=== PATIENT | male | born 1995 | race Two or more races ===

== ENCOUNTER 2025-04-17 11:21 | Inpatient (IN) | payer SELFPAY ==
[~2025-04-17] VITALS: Ht 170.2 cm; Wt 93.3 kg
--- NOTE | 2025-04-17 11:39 | ED.PDOC ---
GI ASSESSMENT HPI Comments 29-year-old male presents with a chief complaint of abdominal pain x onset last night. Patient reports that his pain is localized to his umbilical region, nonradiating, describes as cramping, and rates his pain a 6/10. Patient reports that he is also experiencing blood in his stool. Patient relays that the blood is bright in color. Patient endorses nausea but no vomiting. PMHx: None PSHx: Left Foot Allergies: NKDA HPI: Poor Historian. REVIEW OF SYSTEMS: CONSTITUTIONAL: Denies acute: fever, diaphoresis, chills, generalized weakness. HEAD: Denies acute: headache, photophobia Eyes: Denies acute: Double vision, vision loss, eye pain, eye discharge. EARS: Denies acute: tinnitus, hearing loss, ear discharge, ear pain, THROAT: Denies acute: sore throat, swelling, difficulty swallowing , pain with swallowin g, change in voice. NECK: Denies acute: neck pain, neck swelling, stiff neck. HEART: Denies acute : chest pain, palpitations, LUNGS: Denies acute: SOB, wheezing, cough, hemoptysis ABDOMEN: Denies acute: Vomiting, diarrhea, melena , hematemesis, SKIN: Denies acute: rash, redness, lesions, itchiness. EXTREMITIES: Denies acute: calf pain, numbness, tingling, weakness, denies pain in extremity. Denies acute: Low back pain. Neuro: Denies acute: focal neurological deficit, motor or sensory focal neurological deficit, tremors, seizure like activity, confusion, dizziness, change in mental status, loss of bowel or bladder function, cauda equina like symptoms. : Denies acute: dysuria, hematuria, flank pain, increase in urinary frequency. PSYCH: Denies acute: hallucination, suicidal ideation, homicidal ideation. PHYSICAL EXAM: General: ----figo-[id number]---acute distress, awake and alert. Head: normocephalic, atraumatic. Neck: supple, trachea is midline, no swelling. Throat: Normal phonation. Eyes:, no erythema, no purulent discharge, no proptosis, no icterus. Heart: regular rate, regular rhythm, no significant murmur appreciated. Lungs: no apparent respiratory distress, Able to speak in full sentences. No wheezing, no rhonchi, no crackles. No stridors Clear to auscultation bilaterally. Abdomen: Periumbilical tender to palpation, non distended, soft, no guarding, no rebound, + bowel sounds. Neuro: Awake, Alert, oriented to name, self, situation, follows commands GCS=15. Speech is normal. Skin: no petechia, no purpura, no cyanosis, non-pale, not jaundice. Lower extremities: --no - Pitting edema no deformity, no focal swelling, no calf TTP. Makes eye contact. moves all four extremities. Face: no apparent facial droop. Ambulating in the ED independently. ED COURSE: Time Seen by MD: 11:31 Reviewed Notes: Nurses Notes, Allergies Allergies: Coded Allergies: NO KNOWN ALLERGIES (Unverified , 04/17/25) Home Meds Active Scripts Acetaminophen W/ Codeine (Tylenol W/Cod #3) 1 Tab Tb, 1 TAB PO TIDPRN PRN for 7 Days, #21 TAB Prov:BALA DE LA GARZA MD 04/18/25 Cephalexin Monohydrate (Cephalexin) 500 Mg Tab, 1 TAB PO TID for 7 Days, #21 TAB Prov:BALA DE LA GARZA MD 04/18/25 Information Source: Patient Past Medical History PAST MEDICAL HISTORY: Denies Surgical History: Denies all surgeries Family History Family History: Reviewed,noncontributory to illness Social History Smoker: Non-Smoker Alcohol: Denies ETOH Use Drugs: Denies Drug Use Lives In: Home Was a procedure done? Was a procedure done?: No GI differential Dx Differential Diagnosis: Other (DDX include but not limited to diverticulitis, colitis, gastroenteritis, acute abdomen, SBO, enteritis, constipation, volvulus, appendicitis, Gallbladder disease, choledocolithiasis, ascending cholangitis, pancreatitis, intraAbdominal mass/neoplasm, hepatitis, UTI, pylonephritis, kidney stone, aneurysm, dissection, Inflammatory bowel disease, gastroparesis, ischemic bowel.) X-Ray, Labs, Meds, VS Vital Signs Date Time Temp Pulse Resp B/P (MAP) Pulse Ox O2 Delivery O2 Flow Rate FiO2 04/17/25 17:14 77 16 112/67 (82) 94 04/17/25 16:59 85 20 116/70 (85) 99 04/17/25 16:44 91 20 144/75 (98) 100 04/17/25 16:39 88 16 127/76 (93) 100 04/17/25 16:34 98 17 134/74 (94) 100 04/17/25 16:29 Mask 10.0 100 04/17/25 16:29 100 Mask 10.0 04/17/25 16:29 98.5 97 12 124/67 (86) 100 98.5 04/17/25 14:17 120/78 04/17/25 14:08 85 22 98 Room Air* 0 21 04/17/25 13:10 97.4 88 24 114/72 (86) 99 97.4 04/17/25 13:10 88 24 99 Room Air 04/17/25 11:30 97.4 87 20 119/77 (91) 100 97.4 Lab Test 04/17/25 12:00 04/17/25 11:35 Range/Units White Blood Count 13.4 H 4.4-10.8 10^3/uL Red Blood Count 5.21 4.5-5.90 10^6/uL Hemoglobin 15.7 13.5-17.5 g/dL Hematocrit 45.5 41.0-53.0 % Mean Corpuscular Volume 87.2 80.0-100.0 fL Mean Corpuscular Hemoglobin 30.1 28.0-32.0 pg Mean Corpuscular Hemoglobin Concent 34.5 32.0-36.0 g/dL Red Cell Distribution Width 14.0 11.8-14.3 % Platelet Count 282 140-450 10^3/uL Mean Platelet Volume 8.3 6.9-10.8 fL Neutrophils (%) (Auto) 83.2 H 37.0-80.0 % Lymphocytes (%) (Auto) 11.5 10.0-50.0 % Monocytes (%) (Auto) 4.5 0.0-12.0 % Eosinophils (%) (Auto) 0.1 0.0-7.0 % Basophils (%) (Auto) 0.7 0.0-2.0 % Neutrophils # (Auto) 11.1 H 1.6-8.6 10 ^3/uL Lymphocytes # (Auto) 1.5 0.4-5.4 10 ^3/uL Monocytes # (Auto) 0.6 0-1.3 10 ^3/uL Eosinophils # (Auto) 0 0-0.8 10 ^3/uL Basophils # (Auto) 0.1 0-0.2 10 ^3/uL Nucleated Red Blood Cells 0.0 % Sodium Level 138 136-145 mmol/L Potassium Level 3.9 3.5-5.1 mmol/L Chloride Level 104 98-107 mmol/L Carbon Dioxide Level 24 20-31 mmol/L Anion Gap 10 5-15 Blood Urea Nitrogen 10 9-23 mg/dL Creatinine 0.81 0.700-1.30 mg/dL Glomerular Filtration Rate Calc 124 >90 mL/min BUN/Creatinine Ratio 12.3 10.0-20.0 Serum Glucose 106 74-106 mg/dL Lactic Acid Level 1.7 0.4-2.0 mmol/L Calcium Level 10.7 H 8.7-10.4 mg/dL Total Bilirubin 2.1 H 0.2-1.0 mg/dL Aspartate Amino Transferase (AST) 14 13-40 U/L Alanine Aminotransferase (ALT) 28 7-40 U/L Alkaline Phosphatase 90 46-116 U/L Total Protein 8.2 5.7-8.2 g/dL Albumin 5.2 H 3.2-4.8 g/dL Lipase 33 12-53 U/L Urine Color Yellow Yellow Urine Clarity Clear Clear Urine pH 7.0 5.0-9.0 Urine Specific [place] 1.041 H 1.001-1.035 Urine Protein 1+ H Negative Urine Ketones 4+ H Negative Urine Blood Negative Negative /uL Urine Nitrite Negative Negative Urine Bilirubin Negative Negative Urine Urobilinogen 4 H Negative mg/dL Urine Leukocyte Esterase Trace Negative /uL Urine RBC 1 0 - 3 /hpf Urine Microscopic WBC 1 0-3 /HPF Urine Squamous Epithelial Cells Few <5 /hpf Urine Bacteria None seen None Seen /hpf Urine Mucus Few None Seen Urine Glucose Trace Normal mg/dL Urine Opiates Screen Neg NEGATIVE Urine Fentanyl Screen Neg NEGATIVE Urine Barbiturates Screen Neg NEGATIVE Urine Phencyclidine Screen Neg NEGATIVE Urine Amphetamines Screen Pos NEGATIVE Urine Benzodiazepines Screen Neg NEGATIVE Urine Cocaine Screen Neg NEGATIVE Urine Cannabinoids Screen Neg NEGATIVE Current Medications Medications (Trade) Dose Ordered Sig/Arslan Route Start Time Stop Time Status Last Admin Hydromorphone HCl (Dilaudid Injection) 0.5 mg Q10M PRN IV 04/17/25 16:45 04/17/25 17:26 DC 04/17/25 14:50 PATIENT: JEFFREY MEZACCT: [id number]: [id number] : 1995 LOC: ER ROOM / BED: / AGE / SEX: 29 / M ADM STATUS: REG ER SERVICE 1134 ORDERING PHYSICIAN: SHIELA GUAJARDO DO PROCEDURE(s): ABPL - CT AB PEL WO CON-NO ORAL OR IV REASON: umbilical pain ORDER NUMBER(s): [id number], ACCESSION NUMBER(s): [id number] Exam: CT CT AB PEL WO CON-NO ORAL OR IV History: umbilical pain Comparison Study: None Technique: Multidetector spiral CT of the abdomen and pelvis was performed from lung bases to pubic symphysis. Imaging was performed without IV contrast. Axial, coronal and sagittal multiplanar reformats were obtained from the axial data set by the technologist. Radiation dose : Abdomen/Pelvis: CTDIvol 8 mGy, DLP 434 mGy*cm. Findings: Evaluation of solid organs is limited due to lack of intravenous contrast use. Lung Bases: No acute or significant lung base finding. Normal heart size. No pleural or pericardial effusion. Liver: The liver is normal in size. No focal lesions. Gallbladder and biliary Tree: Unremarkable Spleen: Unremarkable Pancreas: The pancreas is grossly normal in appearance. Adrenal Glands: Unremarkable Kidneys: Kidneys are grossly normal without calculi or hydronephrosis. Bladder: Grossly unremarkable for degree of distention. Bowel: The stomach is grossly normal in appearance. Small bowel and colon are normal in caliber and distribution. Appendix is dilated with mild periappend iceal stranding. Appendicolith at the base of the appendix. No loculated abscess. Ascites: Absent Lymphadenopathy: Subcentimeter retroperitoneal and mesenteric lymph nodes noted. Abdominal wall and Mesentery: Mild right lower quadrant stranding as above. Vasculature: The visualized abdominal aorta is normal in size and caliber. Evaluation of abdominal and pelvic vessels is limited due to lack of intravenous contrast. Pelvic Organs: Unremarkable Musculoskeletal: No aggressive focal bony lesions, acute fractures or dislocation. IMPRESSION: 1. Acute appendicitis. No evidence of rupture at this time. No loculated abscess. Surgical evaluation is recommended. Critical Result: Acute appendicitis Findings discussed with SHIELA GUAJARDO at 04/17/2025 01:07 PM, and acknowledged receipt and understanding of the findings. Radiation optimization: All CT scans at this facility use at least one of these dose optimization techniques: Automated exposure control mA and/or kV adjustment per patient size (includes targeted exams where dose is matched to clinical indication) or iterative reconstruction. HS:Y ATED BY: RIKI GILL MD DICTATED DATE/TIME: 04/17/251315 SIGNED BY: RIKI GILL MD SIGNED DATE/TIME: 04/17/251315 Time of 1ST Reevaluation: 12:01 Reevaluation 1ST: Unchanged Patient Education/Counseling: Diagnosis, Treatment Family Education/Counseling: No Family Present Comments Patient presented with the above HPI.---abdominal pain---workup was initiated. patient was found with the above mentioned diagnosis. the following medications were ordered: please refer to order lists of meds and tests obtained by myself Dr. Guajardo. Patient ED course and VS have been stabilized. Patient has been reassessed in the ED and remained in a stable condition. Pertinent incidental findings were discussed with the patient and/or family. Patient/family voices understanding and is agreeable with plan. Patient has been observed in the ED adequate length of time to insure improvement/stability. Escalation of care considered: Consideration of escalation to observation or admission Patient was found with acute appendicitis. A consult for General surgery was placed. Antibiotics initiated and fluids and pain medications. Patient was ADMITTED to the medicine team for further evaluation and treatment of their presentation. All the reports of any imaging studies that were ordered by myself were reviewed by myself. Departure 1 Departure Time of Disposition: 13:15 Impression: Primary Impression: Acute appendicitis Disposition: ADMITTED INPATIENT Admit to: Tele Condition: Guarded e-Prescriptions Acetaminophen W/ Codeine (Tylenol W/Cod #3) 1 Tab Tb 1 TAB PO TIDPRN PRN for 7 Days, #21 TAB Prov: BALA DE LA GARZA MD 04/18/25 Cephalexin Monohydrate (Cephalexin) 500 Mg Tab 1 TAB PO TID for 7 Days, #21 TAB Prov: BALA DE LA GARZA MD 04/18/25 Discharged With: Self Critical Care Note Critical Care Time?: Yes (35 min-critical care time only) I personally scribed for SHIELA GUAJARDO DO ([email or web address]) on 04/17/25 at 11:39. Electronically submitted by Ham Lewis ([email or web address]). I personally scribed for SHIELA GUAJARDO DO ([email or web address]) on 04/17/25 at 13:53. Electronically submitted by Ham Lewis ([email or web address]). SHIELA GUAJARDO DO Apr 17, 2025 11:39
[2025-04-17 12:17] LABS: Basophils # (auto) 0.1 10 ^3/uL (0-0.2); Basophils % (auto) 0.7 % (0.0-2.0); Eosinophils # (auto) 0 10 ^3/uL (0-0.8); Eosinophils % (auto) 0.1 % (0.0-7.0); Hematocrit 45.5 % (41.0-53.0); Hemoglobin 15.7 g/dL (13.5-17.5); Lymphocytes # (auto) 1.5 10 ^3/uL (0.4-5.4); Lymphocytes % (auto) 11.5 % (10.0-50.0); Mean Corpuscular Hemoglobin 30.1 pg (28.0-32.0); Mean Corpuscular Hgb Conc. 34.5 g/dL (32.0-36.0); Mean Corpuscular Volume 87.2 fL (80.0-100.0); Monocytes # (auto) 0.6 10 ^3/uL (0-1.3); Monocytes % (auto) 4.5 % (0.0-12.0); Neutrophils # (auto) 11.1 10 ^3/uL (1.6-8.6); Neutrophils % (auto) 83.2 % (37.0-80.0); Platelet Count (auto) 282 10^3/uL (140-450); Red Blood Cells 5.21 10^6/uL (4.5-5.90); White Blood Cell 13.4 10^3/uL (4.4-10.8)
[2025-04-17 12:35] LABS: Alkaline Phosphatase 90 U/L (46-116); Anion Gap 10 (5-15); Aspartate Aminotransferase 14 U/L (13-40); BUN/Creatinine Ratio 12.3 (10.0-20.0); Blood Urea Nitrogen 10 mg/dL (9-23); Carbon Dioxide 24 mmol/L (20-31); Chloride 104 mmol/L (98-107); Glucose 106 mg/dL (74-106); Potassium 3.9 mmol/L (3.5-5.1); Sodium 138 mmol/L (136-145); Total Protein 8.2 g/dL (5.7-8.2)
[2025-04-17 12:36] LABS: Albumin 5.2 g/dL (3.2-4.8); Bilirubin, Total 2.1 mg/dL (0.2-1.0); Calcium 10.7 mg/dL (8.7-10.4)
[2025-04-17 12:53] LABS: Alanine Aminotransferase 28 U/L (7-40)
[2025-04-17] MEDS: SODIUM CHLORIDE 0.9% 1,000 ML IV ONE (13:03)
[2025-04-17 13:05] LABS: Lipase 33 U/L (12-53)
[2025-04-17] MEDS: ONDANSETRON HCL 4 MG/2 ML VIAL IV ONE (13:17)
[2025-04-17 13:18] LABS: Urine Bacteria None Seen /hpf (None Seen)
--- NOTE | 2025-04-17 13:18 | DVH ---
Exam: CT CT AB PEL WO CON-NO ORAL OR IV History: umbilical pain Comparison Study: None Technique: Multidetector spiral CT of the abdomen and pelvis was performed from lung bases to pubic symphysis. Imaging was performed without IV contrast. Axial, coronal and sagittal multiplanar reform ats were obtained from the axial data set by the technologist. Radiation dose : Abdomen/Pelvis: CTDIvol 8 mGy, DLP 434 mGy*cm. Findings: Evaluation of solid organs is limited due to lack of intravenous contrast use. Lung Bases: No acute or significant lung base finding. Normal heart size. No pleural or pericardial effusion. Liver: The liver is normal in size. No focal lesions. Gallbladder and biliary Tree: Unremarkable Spleen: Unremarkable Pancreas: The pancreas is grossly normal in appearance. Adrenal Glands: Unremarkable Kidneys: Kidneys are grossly normal without calculi or hydronephrosis. Bladder: Grossly unremarkable for degree of distention. Bowel: The stomach is grossly normal in appearance. Small bowel and colon are normal in caliber and d istribution. Appendix is dilated with mild periappendiceal stranding. Appendicolith at the base of th e appendix. No loculated abscess. Ascites: Absent Lymphadenopathy: Subcentimeter retroperitoneal and mesenteric lymph nodes noted. Abdominal wall and Mesentery: Mild right lower quadrant stranding as above. Vasculature: The visualized abdominal aorta is normal in size and caliber. Evaluation of abdominal a nd pelvic vessels is limited due to lack of intravenous contrast. Pelvic Organs: Unremarkable Musculoskeletal: No aggressive focal bony lesions, acute fractures or dislocation. IMPRESSION: 1. Acute appendicitis. No evidence of rupture at this time. No loculated abscess. Surgical evaluati on is recommended. Critical Result: Acute appendicitis Findings discussed with SHIELA GUAJARDO at 04/17/2025 01:07 PM, and acknowledged receipt and understandin g of the findings. Radiation optimization: All CT scans at this facility use at least one of these dose optimization kayli hniques: Automated exposure control mA and/or kV adjustment per patient size (includes targeted exams where dose is matched to clinical indication) or iterative reconstruction. HS:Y
[2025-04-17 13:27] LABS: Urine Blood Negative /uL (Negative); Urine Clarity Clear (Clear); Urine Color Yellow (Yellow); Urine Mucus FEW (None Seen); Urine Protein, UAD 1+ (Negative); Urine Specific Gravity 1.041 (1.001-1.035); Urine Squamous Epithelial Cell FEW /hpf (<5); Urine Urobilinogen 4 mg/dL (Negative); Urine WBC 1 /HPF (0-3)
[2025-04-17] MEDS: PIPERACILLIN-TAZOB 3.375GM 100 ML IV ONE (14:05)
[2025-04-17 14:08] VITALS: PULSE 85; RESP 22; O2SAT 98
[2025-04-17] MEDS: fentaNYL CITRATE 100 MCG/2 ML VL IV ONE (14:17)
--- NOTE | 2025-04-17 14:33 | DVHINCON2 ---
Date of service: Apr 17, 2025 Allergies: Coded Allergies: NO KNOWN ALLERGIES (Unverified , 04/17/25) Vital Signs Vital Signs Date Time Temp Pulse Resp B/P (MAP) Pulse Ox O2 Delivery O2 Flow Rate FiO2 04/17/25 14:17 120/78 04/17/25 14:08 85 22 98 Room Air* 0 21 04/17/25 13:10 97.4 97.4 Labs/Diagnostic Data Labs Test 04/17/25 12:00 04/17/25 11:35 Range/Units White Blood Count 13.4 H 4.4-10.8 10^3/uL Red Blood Count 5.21 4.5-5.90 10^6/uL Hemoglobin 15.7 13.5-17.5 g/dL Hematocrit 45.5 41.0-53.0 % Mean Corpuscular Volume 87.2 80.0-100.0 fL Mean Corpuscular Hemoglobin 30.1 28.0-32.0 pg Mean Corpuscular Hemoglobin Concent 34.5 32.0-36.0 g/dL Red Cell Distribution Width 14.0 11.8-14.3 % Platelet Count 282 140-450 10^3/uL Mean Platelet Volume 8.3 6.9-10.8 fL Neutrophils (%) (Auto) 83.2 H 37.0-80.0 % Lymphocytes (%) (Auto) 11.5 10.0-50.0 % Monocytes (%) (Auto) 4.5 0.0-12.0 % Eosinophils (%) (Auto) 0.1 0.0-7.0 % Basophils (%) (Auto) 0.7 0.0-2.0 % Neutrophils # (Auto) 11.1 H 1.6-8.6 10 ^3/uL Lymphocytes # (Auto) 1.5 0.4-5.4 10 ^3/uL Monocytes # (Auto) 0.6 0-1.3 10 ^3/uL Eosinophils # (Auto) 0 0-0.8 10 ^3/uL Basophils # (Auto) 0.1 0-0.2 10 ^3/uL Nucleated Red Blood Cells 0.0 % Sodium Level 138 136-145 mmol/L Potassium Level 3.9 3.5-5.1 mmol/L Chloride Level 104 98-107 mmol/L Carbon Dioxide Level 24 20-31 mmol/L Anion Gap 10 5-15 Blood Urea Nitrogen 10 9-23 mg/dL Creatinine 0.81 0.700-1.30 mg/dL Glomerular Filtration Rate Calc 124 >90 mL/min BUN/Creatinine Ratio 12.3 10.0-20.0 Serum Glucose 106 74-106 mg/dL Lactic Acid Level 1.7 0.4-2.0 mmol/L Calcium Level 10.7 H 8.7-10.4 mg/dL Total Bilirubin 2.1 H 0.2-1.0 mg/dL Aspartate Amino Transferase (AST) 14 13-40 U/L Alanine Aminotransferase (ALT) 28 7-40 U/L Alkaline Phosphatase 90 46-116 U/L Total Protein 8.2 5.7-8.2 g/dL Albumin 5.2 H 3.2-4.8 g/dL Lipase 33 12-53 U/L Urine Color Yellow Yellow Urine Clarity Clear Clear Urine pH 7.0 5.0-9.0 Urine Specific [place] 1.041 H 1.001-1.035 Urine Protein 1+ H Negative Urine Ketones 4+ H Negative Urine Blood Negative Negative /uL Urine Nitrite Negative Negative Urine Bilirubin Negative Negative Urine Urobilinogen 4 H Negative mg/dL Urine Leukocyte Esterase Trace Negative /uL Urine RBC 1 0 - 3 /hpf Urine Microscopic WBC 1 0-3 /HPF Urine Squamous Epithelial Cells Few <5 /hpf Urine Bacteria None seen None Seen /hpf Urine Mucus Few None Seen Urine Glucose Trace Normal mg/dL Assessment [id number] AC APPENDICITIS LAP/OPEN APPENDECTOMY Plan discussed with: Other BAUTISTA GOMES MD Apr 17, 2025 14:33
[2025-04-17] MEDS ORDERED: KETOROLAC TROMETH 30 MG/ML 1ML VIAL ONE (14:38)
[2025-04-17] MEDS ORDERED: ONDANSETRON HCL 4 MG/2 ML VIAL ONE (14:38)
[2025-04-17] MEDS ORDERED: PROPOFOL 10 MG/ML 20 ML IV ONE (14:38)
[2025-04-17] MEDS ORDERED: GLYCOPYRROLATE 0.2 MG/ML 1ML VIAL ONE (14:38)
[2025-04-17] MEDS ORDERED: DexAMETHasone SOD PHOS 10MG/1ML VIAL INJ ONE (14:38)
[2025-04-17] MEDS ORDERED: LIDOCAINE 2% (LOCAL ANESTH.) PF 5ml SDV ONE (14:38)
[2025-04-17] MEDS ORDERED: LIDOCAINE HCL 2% TOP JELLY 5ML TOP ONE (14:38)
[2025-04-17] MEDS ORDERED: ROCURONIUM 10MG/ML 10ML VIAL IV ONE (14:38)
[2025-04-17] MEDS ORDERED: fentaNYL CITRATE 100 MCG/2 ML VL ONE (14:41)
[2025-04-17] MEDS ORDERED: SUGAMMADEX 200mg/2ml Vial (100MG/ML) IV ONE (14:47)
[2025-04-17] MEDS: HYDROmorphone HCL 2 MG/ML VL/or syr IV PRN (14:50)
[2025-04-17] MEDS: CELECOXIB 100 MG CAP ONE (15:00)
[2025-04-17] MEDS: ACETAMINOPHEN IV 100 ML IV ONE (15:01)
[2025-04-17] MEDS: GABAPENTIN 300 MG CAP ONE (15:01)
[2025-04-17] MEDS: ACETAMINOPHEN IV 1000 MG/100ML (10MG/ML) IV ONE (15:18)
[2025-04-17] MEDS: CELECOXIB 100 MG CAP PO ONE (15:19)
[2025-04-17] MEDS: GABAPENTIN 300 MG CAP PO ONE (15:19)
[2025-04-17] MEDS: BUPIVACAINE 0.5% P/F INJ 10 ML VIAL ONE (15:58)
--- NOTE | 2025-04-17 16:28 | DVHOP2 ---
Operative Report [id number] AC APPENDICITIS PELVIC ABSCESS DRAINAGE PELVIC ABSCESS,LAP APPENDECTOMY EBL 5 CC NO DRAINS NO COMPLICATIONS BAUTISTA GOMES MD Apr 17, 2025 16:28
[2025-04-17 16:29] VITALS: O2SAT 100
[2025-04-17] MEDS ORDERED: hydrALAZINE HCL 20 MG/ML VL IV PRN (16:45)
[2025-04-17] MEDS: oxyCODONE HCL 5MG TAB PO ONE (16:45)
[2025-04-17] MEDS ORDERED: fentaNYL CITRATE 100 MCG/2 ML VL IV PRN (16:45)
[2025-04-17] MEDS ORDERED: NALOXONE HCL 0.4 MG/ML VIAL IV PRN (16:45)
[2025-04-17] MEDS ORDERED: ONDANSETRON HCL 4 MG/2 ML VIAL IV PRN ×2 (16:45→17:30)
[2025-04-17] MEDS ORDERED: ePHEDrine SULFATE 50 MG/ML AMP IV PRN (16:45)
[2025-04-17] MEDS ORDERED: FLUMAZENIL 0.1 MG/ML INJ 10ML MDV IV PRN (16:45)
--- NOTE | 2025-04-17 16:49 | DVHOP ---
DATE OF SURGERY: 04/17/2025 PREOPERATIVE DIAGNOSIS: Acute appendicitis with pelvic abscess. POSTOPERATIVE DIAGNOSIS: Acute appendicitis with pelvic abscess. PROCEDURE: Laparoscopic appendectomy and drainage of intraabdominal abscess. SURGEON: Kaushal Fitzpatrick MD ROUGH RIB GRADER: None. ANESTHESIA: General. . ESTIMATED BLOOD LOSS: Close to 5 mL. DRAINS: No drains were used. COMPLICATIONS: No complications were encountered. DESCRIPTION OF PROCEDURE: The patient was prepped and draped in the usual sterile fashion in the supine position and supraumbilical incision was applied. It was taken down to the fascia. The Veress needle was introduced. CO2 insufflation was started at pressure of 15 mmHg. The needle was withdrawn and replaced by the 12 mm trocar and a telescope was introduced and the appendix was found to be acutely inflamed and distended with pelvic abscess. Two 5 mm ports were applied more inferiorly, one above the symphysis, the third midway between the upper two. The patient was placed in the right upper and right lateral decubitus position. The camera was moved to the right lowermost 5 mm port. The upper 2 ports were used for surgery. The abscess, as I mentioned earlier, was drained out. The mesoappendix was stripped at the base and divided distal to that using the Harmonic device. The base of the appendix was cleared for transection using the Endo AURELIO stapling device. The appendix released in this fashion was retrieved from the supraumbilical wound in an EndoCatch bag without any complication. Hemostasis was secured. Irrigation fluid was removed from both the right lower quadrant and the pelvis. The patient was placed supine and the omental tissue was brought over the cecal stump and the EndoClose suture was used to the fascia through the supraumbilical wound. All the port sites were withdrawn after all the suture was laid out and the patient was placed supine. The wounds were then brought together using 3-0 Monocryl suture in a subcuticular fashion. Surgical glue was applied. The patient tolerated the procedure well and was taken back to the recovery room in stable condition. MD NAZANIN Babin/MELISSA TID: [id number] RECEIPT: [id number] cc:
[2025-04-17] MEDS ORDERED: HYDROcodone-ACET 5/325MG TAB PO PRN (17:30)
[2025-04-17] MEDS ORDERED: NITROGLYCERIN 0.4 MG SL TAB SL PRN (17:30)
[2025-04-17] MEDS ORDERED: ACETAMINOPHEN 325 MG TAB PO PRN (17:30)
[2025-04-17] MEDS ORDERED: MORPHINE SULFATE INJ 2 MG/ml SYRG IV PRN ×2 (17:30)
--- NOTE | 2025-04-17 17:31 | DVHHP2 ---
Review of Systems Allergies: Coded Allergies: NO KNOWN ALLERGIES (Unverified , 04/17/25) Medications Current Medications Medications Dose Ordered Sig/Arslan Route Start Time Stop Time Status Last Admin Dose Admin Hydralazine HCl 5 mg Q10M PRN IV 04/17/25 16:45 04/17/25 17:36 Nitroglycerin 0.4 mg Q5MINP PRN SL 04/17/25 17:30 UNV Morphine Sulfate 2 mg Q30M PRN IV 04/17/25 17:30 UNV Exam Vital Signs Vital Signs Date Time Temp Pulse Resp B/P (MAP) Pulse Ox O2 Delivery O2 Flow Rate FiO2 04/17/25 17:14 77 16 112/67 (82) 94 04/17/25 16:29 Mask 10.0 100 04/17/25 16:29 98.5 98.5 Labs/Xrays Labs Test 04/17/25 12:00 04/17/25 11:35 Range/Units White Blood Count 13.4 H 4.4-10.8 10^3/uL Red Blood Count 5.21 4.5-5.90 10^6/uL Hemoglobin 15.7 13.5-17.5 g/dL Hematocrit 45.5 41.0-53.0 % Mean Corpuscular Volume 87.2 80.0-100.0 fL Mean Corpuscular Hemoglobin 30.1 28.0-32.0 pg Mean Corpuscular Hemoglobin Concent 34.5 32.0-36.0 g/dL Red Cell Distribution Width 14.0 11.8-14.3 % Platelet Count 282 140-450 10^3/uL Mean Platelet Volume 8.3 6.9-10.8 fL Neutrophils (%) (Auto) 83.2 H 37.0-80.0 % Lymphocytes (%) (Auto) 11.5 10.0-50.0 % Monocytes (%) (Auto) 4.5 0.0-12.0 % Eosinophils (%) (Auto) 0.1 0.0-7.0 % Basophils (%) (Auto) 0.7 0.0-2.0 % Neutrophils # (Auto) 11.1 H 1.6-8.6 10 ^3/uL Lymphocytes # (Auto) 1.5 0.4-5.4 10 ^3/uL Monocytes # (Auto) 0.6 0-1.3 10 ^3/uL Eosinophils # (Auto) 0 0-0.8 10 ^3/uL Basophils # (Auto) 0.1 0-0.2 10 ^3/uL Nucleated Red Blood Cells 0.0 % Sodium Level 138 136-145 mmol/L Potassium Level 3.9 3.5-5.1 mmol/L Chloride Level 104 98-107 mmol/L Carbon Dioxide Level 24 20-31 mmol/L Anion Gap 10 5-15 Blood Urea Nitrogen 10 9-23 mg/dL Creatinine 0.81 0.700-1.30 mg/dL Glomerular Filtration Rate Calc 124 >90 mL/min BUN/Creatinine Ratio 12.3 10.0-20.0 Serum Glucose 106 74-106 mg/dL Lactic Acid Level 1.7 0.4-2.0 mmol/L Calcium Level 10.7 H 8.7-10.4 mg/dL Total Bilirubin 2.1 H 0.2-1.0 mg/dL Aspartate Amino Transferase (AST) 14 13-40 U/L Alanine Aminotransferase (ALT) 28 7-40 U/L Alkaline Phosphatase 90 46-116 U/L Total Protein 8.2 5.7-8.2 g/dL Albumin 5.2 H 3.2-4.8 g/dL Lipase 33 12-53 U/L Urine Color Yellow Yellow Urine Clarity Clear Clear Urine pH 7.0 5.0-9.0 Urine Specific [place] 1.041 H 1.001-1.035 Urine Protein 1+ H Negative Urine Ketones 4+ H Negative Urine Blood Negative Negative /uL Urine Nitrite Negative Negative Urine Bilirubin Negative Negative Urine Urobilinogen 4 H Negative mg/dL Urine Leukocyte Esterase Trace Negative /uL Urine RBC 1 0 - 3 /hpf Urine Microscopic WBC 1 0-3 /HPF Urine Squamous Epithelial Cells Few <5 /hpf Urine Bacteria None seen None Seen /hpf Urine Mucus Few None Seen Urine Glucose Trace Normal mg/dL Assessment/Plan Assessment/Plan SEE DICTATED NOTE Plan discussed with: Patient My Orders Orders - BALA DE LA GARZA MD Procedure Category Date Status Time Discontinue Tele CHRISTA 04/17/25 Transmitted 17:26 Transfer Orders XFER 04/17/25 Transmitted 17:26 NS PHA 04/17/25 Transmitted 17:30 Morphine Sulfate PHA 04/17/25 Transmitted Injection 17:30 Hydrocodone-Acet PHA 6/11/25 Transmitted 5/325mg Tab ([place] 17:30 Acetaminophen Tablet PHA 04/17/25 Transmitted (Tylenol Tablet) 17:30 Ondansetron Hcl PHA 04/17/25 Transmitted (Zofran) 17:30 Ceftriaxone Ivpb PHA 04/18/25 Transmitted Rocephin 09:00 Metronidazole Ivpb PHA 04/17/25 Transmitted Flagyl 22:00 Complete Blood Count LAB 04/18/25 Verified 06:00 Comprehensive LAB 04/18/25 Verified Metabolic Panel 06:00 Date of Service: Apr 17, 2025 Billing Provider: BALA DE LA GARZA MD Common Visit Codes: 67834-[id number] INP/OBS CARE (HIGH) BALA DE LA GARZA MD Apr 17, 2025 17:31
--- NOTE | 2025-04-17 17:44 | DVHHP ---
ADMIT DATE: 04/17/2025 HISTORY OF PRESENT ILLNESS: The patient is a 29-year-old gentleman who is admitted after he came in with complaints of increasing abdominal pain accompanied by nausea. The patient also experienced some blood in the stool. No history of chest pain. No shortness of breath. No dizziness. REVIEW OF SYSTEMS: Otherwise currently negative. PAST MEDICAL HISTORY: Significant for left foot surgery. MEDICATIONS: No medications on a regular basis. ALLERGIES: No known drug allergies. SOCIAL HISTORY: No history of smoking or alcohol. FAMILY HISTORY: Negative. PHYSICAL EXAMINATION: GENERAL: The patient is asleep, arousable. VITAL SIGNS: Temperature of 97.4, pulse 85 per minute, blood pressure 120/78. SHEENT: Unremarkable. NECK: There is no JVD. No pedal edema. LUNGS: Equal bilaterally. No added sounds. CARDIOVASCULAR: S1 and S2 is regular without murmurs. ABDOMEN: Soft. Bowel sounds are hypoactive. NEUROLOGIC: Nonfocal. MUSCULOSKELETAL: Normal. ASSESSMENT AND PLAN: * Acute appendicitis, status post laparoscopic appendectomy with sepsis. The patient will be placed on IV fluids along with IV antibiotics and pain medication. * Questionable blood in the stool that will be monitored. MD ANSELMO Weaver/MELISSA TID: [id number] RECEIPT: [id number]
[2025-04-17] MEDS: SODIUM CHLORIDE 0.9% 1,000 ML IV SCH (17:57)
--- NOTE | 2025-04-17 18:59 | DVHINCON2 ---
DATE OF CONSULTATION: 04/17/2025 HISTORY OF PRESENT ILLNESS: This patient is 29 years old coming in with right lower quadrant pain started yesterday. Some nausea and no vomiting. No constipation or diarrhea. No hematemesis or melena. No bleeding per rectum. PAST MEDICAL HISTORY: No diabetes or hypertension. PAST SURGICAL HISTORY: Left ankle surgery. PHYSICAL EXAMINATION: VITAL SIGNS: Afebrile, stable signs. HEENT: With no evidence of pallor, cyanosis or jaundice. NECK: Supple. No thyromegaly or lymphadenopathy. CHEST AND LUNGS: Clear. HEART: Within normal limits. ABDOMEN: Soft, tender in the right lower quadrant. No evidence of rebound. EXTREMITIES: Unremarkable. NEUROLOGIC: Intact. CLINICAL IMPRESSION: Acute appendicitis. PLAN: Laparoscopic possible open appendectomy. Benefits were discussed and consent obtained. MD NAZANIN Babin/ZAHIDA TID: [id number] RECEIPT: [id number] cc: Rivas Luis MD
[2025-04-17 20:00] VITALS: PULSE 70; RESP 16; O2SAT 94
[2025-04-17 21:00] VITALS: BP 108/74; PULSE 70; RESP 16; TEMP 97.7; O2SAT 94
[2025-04-17] MEDS: metroNIDAZOLE 500MG/100ML 100 ML IV SCH (21:51)
[2025-04-17 22:40] LABS: Cannabinoid Screen, Urine Neg (NEGATIVE)
[2025-04-17 22:47] LABS: Amphetamine Screen, Urine Pos (NEGATIVE); Barbiturate Scree,Urine Neg (NEGATIVE); Benzodiazephine Screen, Urine Neg (NEGATIVE); Cocaine Screen, Urine Neg (NEGATIVE); Opiate Scree,Urine Neg (NEGATIVE); Phencyclidine Screen, Urine Neg (NEGATIVE)
[2025-04-18 01:00] VITALS: BP 107/64; PULSE 69; RESP 17; TEMP 96.8; O2SAT 97
[2025-04-18 05:00] VITALS: BP 96/60; PULSE 63; RESP 16; TEMP 98.4; O2SAT 98
[2025-04-18 07:07] LABS: Alanine Aminotransferase 20 U/L (7-40); Anion Gap 13 (5-15); Carbon Dioxide 23 mmol/L (20-31); Chloride 106 mmol/L (98-107); Potassium 3.9 mmol/L (3.5-5.1); Sodium 142 mmol/L (136-145)
[2025-04-18 07:08] LABS: Albumin 4.5 g/dL (3.2-4.8)
[2025-04-18 07:09] LABS: Aspartate Aminotransferase 14 U/L (13-40)
[2025-04-18 07:12] LABS: Bilirubin, Total 1.2 mg/dL (0.2-1.0); Blood Urea Nitrogen 7 mg/dL (9-23); Glucose 119 mg/dL (74-106)
[2025-04-18 07:13] LABS: Basophils # (auto) 0 10 ^3/uL (0-0.2); Basophils % (auto) 0.1 % (0.0-2.0); Eosinophils # (auto) 0 10 ^3/uL (0-0.8); Hemoglobin 14.2 g/dL (13.5-17.5); Lymphocytes # (auto) 0.9 10 ^3/uL (0.4-5.4); Lymphocytes % (auto) 6.8 % (10.0-50.0); Mean Corpuscular Hemoglobin 30.4 pg (28.0-32.0); Mean Corpuscular Hgb Conc. 34.7 g/dL (32.0-36.0); Mean Corpuscular Volume 87.5 fL (80.0-100.0); Monocytes # (auto) 0.4 10 ^3/uL (0-1.3); Monocytes % (auto) 3.1 % (0.0-12.0); Neutrophils # (auto) 11.8 10 ^3/uL (1.6-8.6); Nucleated Red Blood Cells % 0.1 %; Platelet Count (auto) 257 10^3/uL (140-450); Red Blood Cells 4.68 10^6/uL (4.5-5.90); Red Cell Distribution Width 14.2 % (11.8-14.3); White Blood Cell 13.1 10^3/uL (4.4-10.8)
[2025-04-18 07:42] LABS: Alkaline Phosphatase 74 U/L (46-116)
[2025-04-18 08:00] VITALS: PULSE 73; RESP 19; O2SAT 97
[2025-04-18 09:00] VITALS: BP 121/81; PULSE 73; RESP 19; TEMP 98.2; O2SAT 97
[2025-04-18] MEDS: cefTRIAXone 1GM/50ML D5W 50 ML IV SCH (09:43)
--- NOTE | 2025-04-18 11:49 | DVHPN2 ---
Progress Note Date Seen: Apr 18, 2025 Medical Necessity Reason Pt with a Central, PICC or Fol: No Objective vital signs Vital Sign Date Time Temp Pulse Resp B/P (MAP) Pulse Ox O2 Delivery O2 Flow Rate FiO2 04/18/25 09:00 98.2 73 19 121/81 (94) 97 98.2 04/18/25 08:00 Room Air* 0 21 Total Intake and Output 04/17/25 04/17/25 04/18/25 15:00 23:00 07:00 Intake Total 1000 ml 150 ml 500 ml Balance 1000 ml 150 ml 500 ml medications Current Medications Medications Dose Ordered Sig/Arslan Route Start Time Stop Time Status Last Admin Dose Admin Nitroglycerin 0.4 mg Q5MINP PRN SL 04/17/25 17:30 Morphine Sulfate 2 mg Q30M PRN IV 04/17/25 17:30 Sodium Chloride 1,000 ml @ 100 mls/hr Q10H IV 04/17/25 17:30 04/18/25 04:02 100 MLS/HR Morphine Sulfate 2 mg Q4HPRN PRN IV 04/17/25 17:30 Acetaminophen/ Hydrocodone Bitart 1 tab Q6HPRN PRN PO 04/17/25 17:30 Acetaminophen 650 mg Q6HP PRN PO 04/17/25 17:30 Ondansetron HCl 4 mg Q6HPRN PRN IV 04/17/25 17:30 Ceftriaxone Sodium 50 ml @ 100 mls/hr DAILY@09 IV 04/18/25 09:00 04/18/25 09:43 100 MLS/HR Metronidazole 100 ml @ 100 mls/hr Q8HR IV 04/17/25 22:00 04/18/25 05:57 100 MLS/HR laboratory and microbiology Laboratory Tests 04/18/25 05:05 Test 04/18/25 05:05 Range/Units Serum Glucose 119 H 74-106 mg/dL Problem List/Assessment/Plan Problem List/Assessment/Plan AFEBRILE VSS ABD SOFT WOUNDS HEALING BM + RACHAEL CLEAR LIQUIDS NO COMPLICATION ADVANCE DIET RACHAEL CLEARED FOR DISCHARGE INSTRUCTIONS RE DIET ACTIVITY F/UP GIVEN Plan discussed with: Other My Orders My Orders Orders - BAUTISTA GOMES MD Procedure Category Date Status Time Obtain Consent For: ORDERS 04/17/25 Transmitted 14:33 Obtain Consent For CHRISTA 04/17/25 In Process Anesthesia 14:33 Soft Diet DIET 04/18/25 Transmitted Lunch BAUTISTA GOMES MD Apr 18, 2025 11:49
--- NOTE | 2025-04-18 12:43 | DVHDS2 ---
Discharge Summary Date of Admission Apr 17, 2025 at 17:19 Date of Discharge: Apr 18, 2025 Labs/Diagnostic Data: Laboratory Results Test 04/18/25 05:05 04/17/25 12:00 04/17/25 11:35 White Blood Count 13.1 10^3/uL (4.4-10.8) Red Blood Count 4.68 10^6/uL (4.5-5.90) Hemoglobin 14.2 g/dL (13.5-17.5) Hematocrit 41.0 % (41.0-53.0) Mean Corpuscular Volume 87.5 fL (80.0-100.0) Mean Corpuscular Hemoglobin 30.4 pg (28.0-32.0) Mean Corpuscular Hemoglobin Concent 34.7 g/dL (32.0-36.0) Red Cell Distribution Width 14.2 % (11.8-14.3) Platelet Count 257 10^3/uL (140-450) Mean Platelet Volume 9.1 fL (6.9-10.8) Neutrophils (%) (Auto) 90.0 % (37.0-80.0) Lymphocytes (%) (Auto) 6.8 % (10.0-50.0) Monocytes (%) (Auto) 3.1 % (0.0-12.0) Eosinophils (%) (Auto) 0.0 % (0.0-7.0) Basophils (%) (Auto) 0.1 % (0.0-2.0) Neutrophils # (Auto) 11.8 10 ^3/uL (1.6-8.6) Lymphocytes # (Auto) 0.9 10 ^3/uL (0.4-5.4) Monocytes # (Auto) 0.4 10 ^3/uL (0-1.3) Eosinophils # (Auto) 0 10 ^3/uL (0-0.8) Basophils # (Auto) 0 10 ^3/uL (0-0.2) Nucleated Red Blood Cells 0.1 % Sodium Level 142 mmol/L (136-145) Potassium Level 3.9 mmol/L (3.5-5.1) Chloride Level 106 mmol/L (98-107) Carbon Dioxide Level 23 mmol/L (20-31) Anion Gap 13 (5-15) Blood Urea Nitrogen 7 mg/dL (9-23) Creatinine 0.70 mg/dL (0.700-1.30) Glomerular Filtration Rate Calc 130 mL/min (>90) BUN/Creatinine Ratio 10.0 (10.0-20.0) Serum Glucose 119 mg/dL (74-106) Calcium Level 9.0 mg/dL (8.7-10.4) Total Bilirubin 1.2 mg/dL (0.2-1.0) Aspartate Amino Transferase (AST) 14 U/L (13-40) Alanine Aminotransferase (ALT) 20 U/L (7-40) Alkaline Phosphatase 74 U/L (46-116) Total Protein 7.0 g/dL (5.7-8.2) Albumin 4.5 g/dL (3.2-4.8) Lactic Acid Level 1.7 mmol/L (0.4-2.0) Lipase 33 U/L (12-53) Urine Color Yellow (Yellow) Urine Clarity Clear (Clear) Urine pH 7.0 (5.0-9.0) Urine Specific [place] 1.041 (1.001-1.035) Urine Protein 1+ (Negative) Urine Ketones 4+ (Negative) Urine Blood Negative /uL (Negative) Urine Nitrite Negative (Negative) Urine Bilirubin Negative (Negative) Urine Urobilinogen 4 mg/dL (Negative) Urine Leukocyte Esterase Trace /uL (Negative) Urine RBC 1 /hpf (0 - 3) Urine Microscopic WBC 1 /HPF (0-3) Urine Squamous Epithelial Cells Few /hpf (<5) Urine Bacteria None seen /hpf (None Seen) Urine Mucus Few (None Seen) Urine Glucose Trace mg/dL (Normal) Urine Opiates Screen Neg (NEGATIVE) Urine Fentanyl Screen Neg (NEGATIVE) Urine Barbiturates Screen Neg (NEGATIVE) Urine Phencyclidine Screen Neg (NEGATIVE) Urine Amphetamines Screen Pos (NEGATIVE) Urine Benzodiazepines Screen Neg (NEGATIVE) Urine Cocaine Screen Neg (NEGATIVE) Urine Cannabinoids Screen Neg (NEGATIVE) Other Laboratory Tests 04/18/25 05:05 Brief Hx & Hospital Course: SEE DICTATED NOTE Condition at Discharge: Good Final Diagnosis/Problems List ACUTE APPY Discharge Disposition: Home Discharge Instruct/Medications Diet: Regular Activity: No Restrictions, As Tolerated Follow Up/Referral: SCHEDULE APPT WITH SURGERY IN 10 DAYS Medications: SCRIPT TO PHARMACY Discharge Statement: "Patient was advised to return to the ER or call 911 if any headaches, dizziness, shortness of breath, chest pain, abdominal pain, bleeding, fevers, or worsening of medical condition. Patient was counseled about treatment plan, medications, possible side effects, patientverbalized understanding. All questions were answered to the best of my ability. This discharge took greater then 30 minutes in planning, reviewing documentation, counseling the patient, and discussing with other team members." ASSESSMENT ASSESSMENT Assessment ACUTE APPY Date of Service: Apr 18, 2025 Billing Provider: BALA DE LA GARZA MD Common Visit Codes: 21044-XPF/OBS DISCH DAY >30min BALA DE LA GARZA MD Apr 18, 2025 12:43
[2025-04-18] MEDS ORDERED: ACE3T PO (12:44)
[2025-04-18] MEDS ORDERED: CEPH500T PO (12:44)
[2025-04-18 13:00] VITALS: BP 113/68; PULSE 64; RESP 19; TEMP 98.3; O2SAT 98
--- NOTE | 2025-04-18 15:54 | DVHDS ---
DATE OF DISCHARGE: 04/18/2025 HISTORY OF PRESENT ILLNESS: The patient is a 29-year-old gentleman who was admitted with history of increasing abdominal pain and nausea. HOSPITAL COURSE: The patient had a CT of abdomen and pelvis that showed evidence of acute appendicitis. The patient underwent laparoscopic appendectomy by Dr. Fitzpatrick on 04/17/2025. The patient currently is doing well and is tolerating an oral diet. He has been cleared for discharge by Surgery. His tox screen was positive for amphetamines. The patient will be discharged to be on Keflex 500 mg t.i.d. for 7 days and Tylenol #3 p.r.n. for pain. He has been strongly advised to quit drug abuse. FINAL DIAGNOSES: * Acute appendicitis with sepsis, status post laparoscopic appendectomy. * Drug abuse with amphetamines. Time spent in discharge planning and review of plan with the patient and family at bedside was 37 minutes. MD ANSELMO Weaver/DREW/CARLI TID: [id number] RECEIPT: [id number]
== END 2025-04-18 14:19 | disposition home or self-care (01) | DRG 853 ==
LOC: ER 11:21 → OVERFLOW 17:19 → WEST WING 18:20
PROVIDERS: ADMIT Nurse Practitioner Acute Care; ATTEND Nurse Practitioner Acute Care
PROC: 0DTJ4ZZ Resection of Appendix, Percutaneous Endoscopic Approach (ICD-10-PCS; principal; 2025-04-17 15:32)
DX: A41.9 Sepsis, unspecified organism (principal); K35.33 Acute appendicitis with perforation, localized peritonitis, and gangrene, with abscess; Z79.899 Other long term (current) drug therapy
CPT/HCPCS: 36415; 74176; 80053; 80307; 81001; 83605; 83690; 85025; 96361; 96365; 96375; 99291; G0378; J0131; J1100; J1885; J2003; J2405; J2543; J2704; J3490